=== PATIENT | female | born 1960 | race Caucasian/White ===

== ENCOUNTER → 2020-08-18 10:17 | Outpatient (CLI) | payer MEDICAID, SELFPAY ==
--- NOTE | 2020-08-18 10:18 | US_ITS ---
PROCEDURE: US THYROID CLINICAL INDICATION: enlarged thyroid COMPARISON: No exams were available for comparison FINDINGS: Right lobe: 4.3 x 1.3 x 1.8 cm. Homogeneous echogenicity. No discrete nodule Left lobe: 4.4 x 1.4 x 1.8 cm with homogeneous echogenicity. 2 mm hypoechoic nodules present in the upper pole. There is a 2 mm cyst in the mid polar region. A 2 mm hypoechoic nodules also present in mid pole laterally Isthmus: Unremarkable Additional findings: IMPRESSION: Mildly prominent thyroid gland with small nodules on the left which have a low level of suspicion Dictated by: Anthony Persaud MD 08/18/2020 17:32 Anthony Persaud MD in [facility] 08/18/2020 17:32
--- NOTE | 2020-08-18 10:18 | CT_ITS ---
PROCEDURE: CT SINUS WO CON CLINICAL HISTORY: recurrent sinus infec. COMPARISON: No exams were available for comparison TECHNIQUE: Axial images obtained with sagittal and coronal reformats. All CT scans at the facility use one or more dose reduction, viz: automated exposure control, ma/kV adjustment per patient size (including targeted exams where dose is matched to indication, i.e. head), or iterative reconstruction technique. FINDINGS: No significant mucosal thickening. There is a small amount of mucus in the posterior ethmoid air cell on the left. No maxillary sinus air-fluid level. There is mild rightward nasal septal deviation and there are small bilateral jeremías bullosa left larger than right. The ostiomeatal units are patent. No mastoid effusion. Minimal osteoarthritic changes of the TMJs. There are few scattered small nodes in the neck. The orbits have an unremarkable appearance. IMPRESSION: There is minimal mucous within the posterior left ethmoid air cells. The paranasal sinuses are otherwise unremarkable. There is mild rightward nasal septal deviation and there are small bilateral jeremías bullosa Minimal osteoarthritic change of the TMJs. Dictated by: Anthony Persaud MD 08/19/2020 10:20 Anthony Persaud MD in [facility] 08/19/2020 10:20
== END ==
PROVIDERS: PCP Nurse Practitioner Family; Visit Provider Otolaryngology
DX: J30.9 Allergic rhinitis, unspecified (principal); J32.0 Chronic maxillary sinusitis; J32.9 Chronic sinusitis, unspecified; E01.0 Iodine-deficiency related diffuse (endemic) goiter
CPT/HCPCS: 70486; 76536

== ENCOUNTER → 2020-08-18 11:00 | Outpatient (CLI) | payer MEDICAID, SELFPAY ==
[2020-08-18 14:17] LABS: Thyroid Stimulating Hormone 1.19 uIU/mL (0.465-4.68)
[2020-08-19 11:00] LABS: Thyroid Peroxidase Antibodies <9 IU/mL (0-34)
[2020-08-20 15:06] LABS: Thyroid Stimulating Immunoglob <0.10 IU/L (0.00-0.55)
== END ==
PROVIDERS: Visit Provider Otolaryngology
DX: E01.0 Iodine-deficiency related diffuse (endemic) goiter (principal)
CPT/HCPCS: 36415; 84439; 84443; 84445; 86376